=== PATIENT | female | born 1955 | race Caucasian/White ===

== ENCOUNTER 2023-03-10 11:47 | Emergency (ER) | payer OTHER, MEDICARE ==
[~2023-03-10] VITALS: Ht 152.4 cm; Wt 61.2 kg
[2023-03-10 12:29] LABS: BASOPHILS # (AUTO) 0.1 (0.0-0.1); BASOPHILS % 1.4 % (0.0-1.0); EOSINOPHILS # (AUTO) 0.2 (0.0-0.4); EOSINOPHILS % 1.6 % (0.0-6.0); HEMATOCRIT 30.8 % (34.2-44.1); HEMOGLOBIN 9.7 g/dL (12.0-16.0); LYMPHOCYTES # (AUTO) 1.1 (1.0-3.2); LYMPHOCYTES % 11.6 % (18.0-39.1); MEAN CORPUSCULAR HGB CONC 31.5 g/dL (31-35); MEAN CORPUSCULAR VOLUME 85.8 fL (81-99); MONOCYTES # (AUTO) 0.7 (0.2-0.8); NEUTROPHILS # (AUTO) 7.4 (2.1-6.9); PLATELET COUNT 811 x10e3/uL (140-360); RED BLOOD COUNT 3.59 x10e6/uL (3.6-5.1); RED CELL DISTRIBUTION WIDTH 14.7 % (11.7-14.4)
[2023-03-10 12:42] LABS: INR 0.87; PROTHROMBIN TIME 12.3 seconds (11.9-14.5)
[2023-03-10 12:52] LABS: ALBUMIN 3.8 g/dL (3.5-5.0); ALBUMIN/GLOBULIN RATIO 1.1 (0.8-2.0); ANION GAP 13.6 mmol/L (8-16); CALCIUM 8.9 mg/dL (8.4-10.2); CREATININE, SERUM 0.71 mg/dL (0.57-1.11); POTASSIUM 3.6 mmol/L (3.5-5.1)
[2023-03-10 14:00] VITALS: O2SAT 99
[2023-03-10 14:03] VITALS: BP 145/71
== END 2023-03-10 14:20 | disposition home or self-care (01) ==
LOC: ER 11:51
DX: F07.81 Postconcussional syndrome (principal); R50.9 Fever, unspecified; W01.0XXA Fall on same level from slipping, tripping and stumbling without subsequent striking against object, initial encounter; Y93.01 Activity, walking, marching and hiking; Y92.488 Other paved roadways as the place of occurrence of the external cause; M06.9 Rheumatoid arthritis, unspecified; J45.909 Unspecified asthma, uncomplicated; E03.9 Hypothyroidism, unspecified; D64.9 Anemia, unspecified; G40.909 Epilepsy, unspecified, not intractable, without status epilepticus; K21.9 Gastro-esophageal reflux disease without esophagitis; Z98.84 Bariatric surgery status
CPT/HCPCS: 36415; 70450; 72125; 72192; 80053; 85025; 85610; 93005; 99283